=== PATIENT | male | born 2005 | race African-American/Black ===

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

== ENCOUNTER 2025-01-07 13:47 | Emergency (ER) | payer MEDICAID ==
[~2025-01-07] VITALS: Ht 167.6 cm; Wt 64.0 kg
[~2025-01-07 13:47] MED LIST: AMOX1TAB16 MT
[2025-01-07 14:00] VITALS: O2SAT 98
[2025-01-07 14:54] LABS: CLARITY URINE CLEAR (CLEAR); COLOR URINE YELLOW (YELLOW); GLUCOSE URINE NEGATIVE (NEGATIVE); KETONES URINE NEGATIVE (NEGATIVE); LEUKOCYTE ESTERASE URINE NEGATIVE (NEGATIVE); NITRITE URINE NEGATIVE (NEGATIVE); OCCULT BLOOD URINE TRACE (NEGATIVE); PH URINE 5.0 (4.5-8.0); PROTEIN URINE NEGATIVE (NEGATIVE); SPECIFIC GRAVITY URINE 1.025 (1.005-1.030); UROBILINOGEN URINE 0.2 E.U./dL (0.2-1.0)
[2025-01-07 15:05] LABS: BASOPHILS % 1.2 % (0.0-2.0); EOSINOPHILS % 3.9 % (0.0-5.0); HEMATOCRIT. 40.8 % (42.0-52.0); HEMOGLOBIN. 13.4 g/dL (14.0-18.0); LYMPHOCYTES % 17.0 % (20.0-50.0); MEAN PLATELET VOLUME 6.8 fl (7.4-10.4); MONOCYTES % 5.0 % (2.0-8.0); NEUTROPHILS % 72.9 % (40.0-76.0); PLATELET 320 x1000/uL (130-400); RED BLOOD CELL COUNT 4.83 mill/uL (4.7-6.1); RED CELL DISTRIBUTION WIDTH 14.3 % (11.6-14.6)
[2025-01-07 15:16] LABS: CREATININE 0.9 mg/dL (0.6-1.3); UREA NITROGEN BLOOD 9 mg/dL (9-23)
[2025-01-07 15:19] LABS: CALCIUM OXALATE CRYSTALS URINE 2+ /lpf; MUCUS URINE 2+ /lpf (NONE/TRACE)
[2025-01-07 15:20] LABS: BACTERIA URINE NONE SEEN; RBC URINE 0-2 /hpf (0-2); SQUAMOUS EPITHELIAL CELL URINE NONE SEEN /lpf (RARE/1+); WBC URINE 0-2 /hpf (0-2)
[2025-01-07 15:33] VITALS: BP 110/60; PULSE 85; RESP 16; TEMP 36.8; O2SAT 99
== END 2025-01-07 15:35 | disposition home or self-care (01) ==
LOC: ER 13:47
DX: Z48.03 Encounter for change or removal of drains (principal); J45.909 Unspecified asthma, uncomplicated; Z79.899 Other long term (current) drug therapy
CPT/HCPCS: 36415; 80048; 81003; 85025; 99283

== ENCOUNTER 2025-01-24 09:43 | Emergency (ER) | payer MEDICAID ==
[~2025-01-24] VITALS: Ht 167.6 cm; Wt 59.0 kg
[2025-01-24 09:45] VITALS: O2SAT 99
[2025-01-24] MEDS: SODIUM CHLORIDE 0.9% 1,000 ML IV ONE (10:04)
[2025-01-24] MEDS: KETOROLAC 15MG/ML VIAL IV ONE (10:04)
[2025-01-24] MEDS: ONDANSETRON HCL 4MG/2ML INJ IV ONE (10:04)
[2025-01-24] MEDS: MORPHINE SULFATE 4 MG/ML INJ (FOR IV/IM USE) IV ONE (10:36)
[2025-01-24] MEDS ORDERED: HYDROMORPHONE HCL/PF 2MG/ML INJ IV ONE (10:45)
[2025-01-24 10:54] LABS: BASOPHILS % 0.5 % (0.0-2.0); EOSINOPHILS % 3.1 % (0.0-5.0); HEMATOCRIT. 37.3 % (42.0-52.0); HEMOGLOBIN. 12.2 g/dL (14.0-18.0); LYMPHOCYTES % 13.4 % (20.0-50.0); MEAN PLATELET VOLUME 6.8 fl (7.4-10.4); MONOCYTES % 6.2 % (2.0-8.0); NEUTROPHILS % 76.8 % (40.0-76.0); PLATELET 375 x1000/uL (130-400); RED BLOOD CELL COUNT 4.46 mill/uL (4.7-6.1); RED CELL DISTRIBUTION WIDTH 13.5 % (11.6-14.6)
[2025-01-24 11:00] LABS: CREATININE 0.9 mg/dL (0.6-1.3)
[2025-01-24 11:01] LABS: UREA NITROGEN BLOOD 9 mg/dL (9-23)
[2025-01-24 11:02] LABS: ASPARTATE AMINOTRANSFERASE 12 IU/L (<34); BILIRUBIN DIRECT 0.2 mg/dL (<=3.0)
[2025-01-24 11:03] LABS: BILIRUBIN TOTAL 0.5 mg/dL (0.1-1.0); PROTEIN TOTAL 6.6 g/dL (6.0-8.3)
[2025-01-24] MEDS: HYDROMORPHONE HCL/PF 1MG/ML INJ IV NR (11:03)
[2025-01-24 11:08] LABS: INR 1.0
[2025-01-24 12:12] VITALS: BP 112/65; PULSE 72; RESP 16; TEMP 37; O2SAT 99
[2025-01-24] MEDS ORDERED: SENN-371 MT (12:18)
[2025-01-24] MEDS ORDERED: METO-293 MT (12:18)
[2025-01-24] MEDS ORDERED: IBUP-1455 MT (12:19)
[2025-01-24] MEDS ORDERED: IOHEXOL-300 100 ML BOTTLE ONE (19:28)
== END 2025-01-24 12:35 | disposition home or self-care (01) ==
LOC: ER 10:29 → CANBEDREQ 12:12 → ER 12:35
DX: K56.699 Other intestinal obstruction unspecified as to partial versus complete obstruction (principal); J45.909 Unspecified asthma, uncomplicated; Z90.49 Acquired absence of other specified parts of digestive tract; Z79.899 Other long term (current) drug therapy
CPT/HCPCS: 80076; 80048; 80320; 83605; 83690; 83735; 85025; 85610; 85730; 86850; 86900; 86901; 36415; 74177; 93005; 96361; 96374; 96375; 99285; Q9967; J1885; J2405; J1171; J7030; G0480